=== PATIENT | female | born 1995 | race Caucasian/White ===

== ENCOUNTER 2021-08-27 07:09 | Inpatient (IN) | payer SELFPAY ==
[2021-08-27] VITALS (40 sets, daily range): BP systolic 113–155; BP diastolic 58–90; PULSE 75–123; RESP 16; TEMP 36.2–37.4; O2SAT 91–100; BMI 33.2
--- NOTE | 2021-08-27 08:48 | PCM.HP.OB ---
HPI - General General Date of Admission: 08/27/21 HPI Narrative ASHLEY VALLE, is a 25 F @ 34w1d who presents with clear PPROM. she had been receiving care by environmental maintenance worker Melani Rosario in [place] with no complications to the and awoke this morning with clear LOF. she had a minor fall yesterday but has no abdominal pain or bleeding, nofevers or recent infections. she feels good fm and no regular ctx. she has had two previous SVDs, preeclampsia with her first . Maternal Data Information EDY Calculator Estimated Delivery Date Method Current WG Current Estimate 10/07/21 Manual 34w 1d PFSH PFSH Home Medications [id number] [] 1 tab PO DAILY 08/27/21 [History Last Taken 08/26/21] Allergy/AdvReac Type Severity Reaction Status Date / Time No Known Allergies Allergy Verified 12/01/14 10:25 Social History Smoking Status: Never smoker NST FHR Rate Baby A Baseline: 140 Variability:: Moderate Accelerations:: 15 x 15 Decelerations:: None NST Reactive:: Yes FHR Category:: Category I ROS Constitutional Constitutional: Reports systems reviewed and no addt'l complaints, except as documented ENT HEENT: Reports systems reviewed and no addt'l complaints, except as documented Cardiovascular Cardiovascular: Reports systems reviewed and no addt'l complaints, except as documented Respiratory/Chest Respiratory/Chest: Reports systems reviewed and no addt'l complaints, except as documented Gastrointestinal Gastrointestinal: Reports systems reviewed and no addt'l complaints, except as documented and nausea; Denies abdominal pain Genitourinary Genitourinary: Reports systems reviewed and no addt'l complaints, except as documented, contractions Details: present and frequency (regular ) and movement Details: present Musculoskeletal Musculoskeletal: Reports systems reviewed and no addt'l complaints, except as documented Integumentary Integumentary: Reports as per HPI Neurologic Neurologic: Reports systems reviewed and no addt'l complaints, except as documented Endocrine Endocrinology: Reports systems reviewed and no addt'l complaints, except as documented Vital Signs Vital Signs Vital Signs: 08/27/21 07:48 08/27/21 07:49 08/27/21 07:52 Temperature 99.2 F H Temperature Source Temporal Pulse Rate 101 H 101 H 100 Blood Pressure 128/79 H 128/79 H BP Systolic 128 128 BP Diastolic 79 79 Pulse Ox 97 97 Weight Weight: 187 lb 6.287 oz Body Mass Index (BMI) 33.2 Physical Exam Const alert, oriented x3 and healthy appearing Constitutional Narrative: uncomfortable with contractions HEENT normocephalic and moist oral mucous membranes Head and Scalp: atraumatic Neck full ROM, no lymphadenopathy, supple and thyroid normal General: trachea midline Thyroid: thyroid normal Lymph Lymphatic: no lymphadenopathy noted Chest inspection of chest normal Resp normal respiratory effort Cardio regular rate GI normal to inspection, nondistended, normoactive bowel sounds, soft to palpation and non-tender Inspection: gravid external exam normal Bimanual Exam - Vag & Uterus: uterus non-tender Manual OB Exam: estimated gestational size appropriate, presentation cephalic, dilated 1, effaced and station Extremity normal to inspection General Extremity: Negative for edema Skin no rashes or lesions noted Neuro deep tendon reflexes 2+ bilaterally Motor Exam: strength 5/5 throughout and clonus absent Psych mental status grossly normal Labs Labs Labs: No Data to Display Assessment & Plan (1) premature rupture of membranes (PPROM) with unknown onset of labor: COMMENT: ampicillin prophylaxis. monitor for signs of triple I. celestone for prematurity (2) Encounter for induction of labor: COMMENT: plan pitocin IOL, Epi PRN
[2021-08-27] MEDS: Lactated Ringers 1,000 ML 50 ML IV (09:00)
[2021-08-27] MEDS: Betamethasone/Betamethasone 30 MG/5 ML Vial 12 MG IM (09:14)
[2021-08-27] MEDS: Oxytocin 30 units/NS 500 ml 30 UNITS/500 ML IV.SOLN IV (09:41)
[2021-08-27 09:47] LABS: Absolute Lymphocyte Count 1.35 X10^3/uL (0.83-4.51); Absolute Neutrophil Count 5.1 X10^3/uL (2.0-7.7); Basophil# 0.02 X10^3/uL; Basophil% 0.3 % (0-1); Eosinophil# 0.04 X10^3/uL; Eosinophils% 0.6 % (0-5); Hematocrit 37.3 % (37-47); Hemoglobin 12.9 g/dL (12.0-15.0); Lymphocyte # 1.35 X10^3/ul (0.83-4.51); Lymphocyte % 19.2 % (19-41); Mean Corp Hgb Conc 34.6 g/dL (32-36); Mean Corpuscular Hgb 30.1 pg (27.0-32.0); Mean Corpuscular Volume 87.1 fL (81-99); Mean Platelet Vol. 8.4 fl (6.2-12.0); Monocyte# 0.54 X10^3/uL; Monocyte% 7.7 % (0-10); NRBC Flagged by Analyzer 0 % (0-5); Neutrophil # 5.05 X10^3/uL (2.7-7.7); Neutrophil % 71.9 % (47-70); Platelet Count 235 K/mm3 (150-450); RBC Distribution Width CV 13.6 % (11.6-14.6); RBC Distribution Width SD 42.9 fl (35.1-43.9); Red Blood Count 4.28 M/mm3 (4.2-5.4)
[2021-08-27] MEDS: Lactated Ringers 500 ML 999 ML IV (12:40)
[2021-08-27] MEDS: fentaNYL-bupivacaine (epidural) 100 ML BAG EPIDURAL (13:24)
[2021-08-27 13:31] LABS: HIV - WCH Non-Reactive (Nonreactive); Hepatitis C Antibody Non-Reactive (Nonreactive)
--- NOTE | 2021-08-27 14:21 | EX.PCM.OBRPT ---
Assessment & Plan (1) premature rupture of membranes (PPROM) with unknown onset of labor: COMMENT: ampicillin prophylaxis. monitor for signs of triple I. celestone for prematurity (2) Encounter for induction of labor: COMMENT: plan pitocin IOL, Epi PRN (3) Vaginal delivery: COMMENT: PPROM 34 SM boy [facility] Maternal Data Information EDY Calculator Estimated Delivery Date Method Current WG Current Estimate 10/07/21 Manual 34w 1d Vaginal Delivery Operative Information Date of Procedure: 08/27/21 Pre-Operative Diagnosis: IAL Post-Operative Diagnosis: same Surgery / Procedure Performed: Spontaneous Vaginal Delivery Type of Anesthesia: Epidural Special Medications: none Estimated Blood Loss: 100 Fluids Replaced: crystalloid Findings Description of Procedure: Patient began pushing and delivered the head in the YANELIS presentation. The head was delivered atraumatically . The anterior and posterior shoulders delivered without complication followed by the rest of the and the was placed on the maternal abdomen. Delayed cord clamping was employed for approximately 60 seconds. Cord was clamped and cut and gentle traction was applied to the cord and the placenta delivered spontaneously immediately following it was noted to be intact with three-vessel cord. The perineum and vagina were inspected and noted to have no laceration. EBL was 100 cc. Patient and infant tolerated delivery well. Presentation: YANELIS Amniotic Membrane Rupture Type: Artificial Amniotic Fluid Description: Clear Placental Delivery Description: Spontaneous Placenta Disposition: [facility] Cord Vessel Description: 3 Vessels Cord Entanglement: None Delayed Cord Clamping: Yes Post Vaginal Delivery Medications Given After Delivery: IV Pitocin Episiotomy Description: None Laceration: None Complication Complications: None Procedures Urinary/Genital [id number]: 95320 Vaginal Delivery Only
--- NOTE | 2021-08-27 14:24 | PCM.DC ---
Discharge Instructions Diet Discharge Diet: No restrictions Activity Discharge Activity: Return to Normal Activity, May Not Drive (while taking narcotic pain medications.) and May Shower May resume sexual activity in: 4-6 weeks Dressing / Incision Call your doctor if your incision/area has: Continuous Slow Oozing, Sudden Increased Bleeding, Increased Pain/ Swelling, Increased Redness and Foul Smelling Discharge Follow Up Care Please Follow Up With: Izabella Noguera MD When: Call [phone] to make an appointment with your doctor in 6 weeks. If you had elevated blood pressure or 4th degree laceration, you will need to be seen in 2 weeks. Test Results: Test results from this visit will be discussed in further detail at your follow-up appointment, if applicable. Discharge Plan Admission Admit Date/Time: 08/27/21 07:09 Attending Provider: Izabella Noguera Discharge Orders/Prescriptions Prescriptions: No Action 1 mg Tablet 1 tab PO DAILY RF: 0 Disposition Disposition (needs filled in before D/C Order can be placed): Home, Self Care
[2021-08-27 17:05] LABS: Group B Strep DNA By PCR POSITIVE (Negative); Probe Check PASS
--- NOTE | 2021-08-27 19:43 | NURSING ---
GBS was collected on admission. Lab results remained pending until after baby born. kvng arana rn
[2021-08-27] MEDS: Acetaminophen 500 MG Tablet 1000 MG PO (22:16)
[2021-08-28 01:36] VITALS: BP 125/71; PULSE 76; RESP 16; TEMP 36.6
[2021-08-28 04:19] VITALS: BP 130/78; PULSE 80; RESP 16; TEMP 36.6
[2021-08-28] MEDS: Naproxen 500 MG Tablet PO ×2 (04:21→12:31)
--- NOTE | 2021-08-28 07:09 | PN.OBGYN_ITS ---
Subjective Subjective Patient doing well without complaints. Tolerating PO. Ambulating and voiding without difficulty. feeding well. Denies chest pain, shortness of breath, calf pain/swelling, fevers, chills, lightheadedness. Objective Data Objective Data Vital Signs: Vital Signs Temp Pulse Resp BP Pulse Ox 97.9 F 80 16 130/78 H 99 08/28/21 04:19 08/28/21 04:19 08/28/21 04:19 08/28/21 04:19 08/27/21 16:40 Oxygen Delivery Method Room Air Weight: 187 lb 6.287 oz Body Mass Index (BMI) 33.2 Intake & Output: Intake and Output for Last 24 Hours 08/26/21 08/27/21 08/28/21 23:59 23:59 23:59 Intake Total 1029.36 / 1029.36 Output Total 950 / 950 Balance 79.36 / 79.36 Lab / Micro Data Result Diagrams: 08/27/21 09:05 Labs: Laboratory Results - last 24 hr 08/27/21 09:05: WBC 7.0, RBC 4.28, Hgb 12.9, Hct 37.3, MCV 87.1, MCH 30.1, MCHC 34.6, RDW Std Deviation 42.9, RDW Coeff of Eliezer 13.6, Plt Count 235, MPV 8.4, Immature Gran % (Auto) 0.300, Neut % (Auto) 71.9 H, Lymph % (Auto) 19.2, Garrett % (Auto) 7.7, Eos % (Auto) 0.6, Baso % (Auto) 0.3, Absolute Neuts (auto) 5.1, Absolute Lymphs (auto) 1.35, Nucleated RBC % 0 08/27/21 09:05: Blood Type A POSITIVE, Antibody Screen NEGATIVE 08/27/21 09:05: Group B Strep DNA POSITIVE H, Specimen Comment SINGLE SOURCE 08/27/21 09:05: Hepatitis C Antibody Non-Reactive, HIV 1&2 Antibody Non-Reactive Micro: Microbiology 08/27/21 09:05 Nasal Secretion SARS-CoV-2 Antigen (Rapid) - Final ROS Constitutional Constitutional: Reports systems reviewed and no addt'l complaints, except as documented Cardiovascular Cardiovascular: Reports systems reviewed and no addt'l complaints, except as documented Respiratory/Chest Respiratory/Chest: Reports systems reviewed and no addt'l complaints, except as documented Gastrointestinal Gastrointestinal: Reports systems reviewed and no addt'l complaints, except as documented Physical Exam Const alert, oriented x3 and no apparent distress HEENT Head and Scalp: atraumatic Resp normal respiratory effort GI soft to palpation and non-tender Bimanual Exam - Vag & Uterus: uterus non-tender Uterus Palpation: uterus fundus firm (below Umbilicus) Assessment & Plan (1) Vaginal delivery: COMMENT: PPROM 34 boy [facility] (2) premature rupture of membranes (PPROM) with unknown onset of labor: COMMENT: ampicillin prophylaxis. monitor for signs of triple I. celestone for prematurity (3) Encounter for induction of labor: COMMENT: plan pitocin IOL, Epi PRN PLAN: s/p PPD # 1 1. routine post delivery care 2. breast feeding- support given 3. rh positive 4. rubella immune
[2021-08-28 08:00] VITALS: BP 123/77; PULSE 92; RESP 16; TEMP 36.9
[2021-08-28 14:00] VITALS: BP 125/66; PULSE 92; RESP 16; TEMP 36.7
== END 2021-08-28 17:30 | disposition home or self-care (01) | DRG 807 ==
LOC: WPOUT 07:23 → WP 07:23 → WPOUT 07:55 → WP 07:55
PROVIDERS: Admitting Provider Obstetrics & Gynecology; Referring Provider Obstetrics & Gynecology; Visit Provider Obstetrics & Gynecology
DX: O42.913 Preterm premature rupture of membranes, unspecified as to length of time between rupture and onset of labor, third trimester (principal); Z37.0 Single live birth; Z3A.34 34 weeks gestation of pregnancy; Z87.59 Personal history of other complications of pregnancy, childbirth and the puerperium
CPT/HCPCS: 59025; 59050; 85025; 86703; 86803; 86850; 86900; 86901; 87426; 87653; 99218; J7120; G0378; J0290; J0702

== ENCOUNTER 2021-10-17 08:04 | Outpatient (CLI) | payer SELFPAY ==
[2021-10-19 16:43] LABS: HPV Reflexed? NOT INDICATED
== END 2021-10-17 23:59 | disposition home or self-care (01) ==
LOC: LABSPEC 08:05
PROVIDERS: Visit Provider Obstetrics & Gynecology
DX: Z12.4 Encounter for screening for malignant neoplasm of cervix (principal)
CPT/HCPCS: 88175; G0145

== ENCOUNTER → 2023-05-23 | Outpatient (CLI) | payer SELFPAY ==
[2023-05-23 14:25] LABS: hCG Titer Quant., Serum 42506 mIU/mL (1-3)
[2023-05-28 09:07] LABS: Chlamydia By Nucleic Acid AMP Negative (Negative); Gonococcus By Nucleic Acid AMP Negative (Negative)
== END | disposition home or self-care (01) ==
PROVIDERS: Registered Nurse; Referring Provider Obstetrics & Gynecology; Visit Provider Obstetrics & Gynecology
DX: O20.0 Threatened abortion (principal); Z3A.08 8 weeks gestation of pregnancy
CPT/HCPCS: 36415; 84702; 87086; 87491; 87591

== ENCOUNTER → 2023-05-29 | Outpatient (CLI) | payer SELFPAY ==
--- NOTE | 2023-05-29 12:23 | US_ITS ---
STUDY: FIRST TRIMESTER OBSTETRICAL ULTRASOUND REASON FOR EXAM: Female, 27 years old threatened LMP: March 22, 2023. TECHNIQUE: Transabdominal and Transvaginal TECHNICAL QUALITY: Adequate. PRIOR ULTRASOUND: None. FINDINGS: There is visualization of a single gestational sac in a normal intrauterine position. The mean sac diameter (MSD) measures 2.42 cm, indicating an estimated gestational age (EGA) of 7 weeks, 3 days. The gestational sac shape is irregular in appearance There is no demonstrated yolk sac. The placenta is non-visualized. Questionable intrauterine embryo measuring 4.4 mm corresponding to 6 weeks and 2 days. No cardiac activity is seen at this time. The estimated gestation age (EGA) by LMP is 9 weeks, 5 days. The estimated date of delivery (EDY) by LMP is December 27, 2023. The estimated gestation age (EGA) by US is 6 weeks, 6 days. The estimated date of delivery (EDY) by US is January 16, 2024. The uterus measures 10.2 cm x 8 cm x 6.1 cm. There is no demonstrated uterine fibroid. The cervix is closed. The right ovary measures 2.6 cm x 2.9 cm x 1.3 cm. There is no right ovarian cyst. There is no visualized right adnexal mass or complex lesion. The left ovary measures 2.6 cm x 2.9 cm x 1.8 cm. There is no left ovarian cyst. There is no visualized left adnexal mass or complex lesion. There is no fluid in the cul de sac. US/Transvaginal w/Preg US IMPRESSION: Intrauterine gestation with mean gestational age of 6 weeks and 6 days. No live gestation is seen at this time. Follow-up recommended. Electronically Signed: Kwaku Martin MD at 14:02 [facility] [[email or web address]] ,
== END | disposition home or self-care (01) ==
PROVIDERS: Referring Provider Obstetrics & Gynecology; Visit Provider Obstetrics & Gynecology
DX: O20.0 Threatened abortion (principal); Z3A.00 Weeks of gestation of pregnancy not specified
CPT/HCPCS: 76817

== ENCOUNTER 2023-06-01 10:54 | Day surgery (SDC) | payer SELFPAY ==
[2023-06-01] VITALS (8 sets, daily range): BP systolic 112–128; BP diastolic 67–89; PULSE 72–80; RESP 16; TEMP 36.4–36.8; O2SAT 98–100; BMI 30.6
[2023-06-01] MEDS: Lactated Ringers 1,000 ML 15 ML IV (11:37)
[2023-06-01 11:38] LABS: Hematocrit 38.7 % (37-47); Hemoglobin 13.5 g/dL (12.0-15.0); Mean Corp Hgb Conc 34.9 g/dL (32-36); Mean Corpuscular Hgb 30.1 pg (27.0-32.0); Mean Corpuscular Volume 86.2 fL (81-99); Mean Platelet Vol. 8.4 fl (6.2-12.0); Platelet Count 276 K/mm3 (150-450); RBC Distribution Width CV 12.8 % (11.6-14.6); RBC Distribution Width SD 40.4 fl (35.1-43.9); Red Blood Count 4.49 M/mm3 (4.2-5.4); White Blood Count 5.9 K/mm3 (4.4-11.0)
[2023-06-01] MEDS: Doxycycline 100 MG CAPSULE PO (11:45)
--- NOTE | 2023-06-01 12:09 | HP.PCM_ITS ---
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 Is patient in pain?: No Allergies No Known Allergies Allergy (Verified 05/31/23 10:53) Medications [id number]-eoa-Cf-FA 1 mg tablet 1 tab PO DAILY 08/27/21 [History Confirmed 05/31/23] Last Menstrual Period: 03/22/23 Zika: Zika virus screening: Negative : No PFSH PFSH Medical History Encounter for induction of labor premature rupture of membranes (PPROM) with unknown onset of labor Seasonal allergies Vaginal delivery Surgical History History of surgery Family History Father Polydactyly of both feet Polydactyly of both hands Social History adopted: No household members: spouse and children number of children: 3 current occupational status: unemployed current occupation: HOMEMAKER current occupational exposures/hazards: No pets and animals: No history of recent travel: Yes (-) out of state: Yes out of country: No sexually active: Yes Smoking Status: Never smoker alcohol intake: current alcohol intake frequency: holidays/special occasions only details: NOT WHILE substance use type: does not use well-balanced diet: daily or most days caffeine: No eating out: 1-3 times/week during the past year weight has: increased > 10 lbs what type of physical activity do you participate in: walking frequency: 5-6 times per week duration: 30-45 minutes/day meri/synagogue: Religious seatbelt use: always do you feel safe at home: Yes additional social history: Gracie [employer]a nguyen is her family business History 4 Elective abortions 0 Hx Para 3 Spontaneous abortions 1 Hx # Term Pregnancies 3 Ectopic pregnancies 0 Hx # Pregnancies 1 Multiple births 0 # of living children 3 Past Pregnancies Del. Date Name GA/Weeks Outcome Route Bth Weight Infant Gen Labor Lgth Anesthesia Del Locatn Provider FOB Unknown Kimberly live - full term Unknown Taylor live - full term 08/27/21 [facility] [place] 34 live - [facility] [place] Delivery Date: 08/27/21 Last Updated by: Valery Romero PPROM pt saw Melani Rosario at [place] a CNM there. Delivered at [facility] due to GA, baby transferred to [facility]. Family owns Marcela nguyen HPI possible miscarriage/US dating off Details: ASHLEY ROMERO is a 27 year old who presents for follow up early . US shows 4.5mm CRL with no FHT or color doppler seen. no viable IUP. GS measuring 29 mm. confirmed missed . she denies any bleeding or crmaping, no fevers. OB Visit EDY Calculator Estimated Delivery Date Method Current WG Current Estimate 12/27/23 LMP (Certain) 10w 0d Initial Weight: 177 lb Date -?-?-?-?-?-?-?-?-?-?-?-?- EGA Weight BP Urine Prot -?-?-?-?-?-?-?-?-?-?-?-?- Glucose FHR FuHt Pres Dilation -?-?-?-?-?-?-?-?-?-?-?-?- Effaced St Visit Note 05/23/23-?-?-?-?-?-?-?-?-?-?-?-?- 8w 6d 177 lb 4 oz(+4 oz) 131/85 -?-?--?-?-?-?-?-?-?-?-?-?- -?-?-?-?-?-?-?-?-?-?-?-?- LC- GS measuring 7 weeks, no FHT. threatened AB vs missed AB. will obtain hcgx2. ACOG First Trimester First Trimester: ROS Const Reports system reviewed and no additional complaints, except as documented, Reports fatigue and Denies fever(s) Eyes Reports system reviewed and no additional complaints, except as documented ENT Reports system reviewed and no additional complaints, except as documented Card Denies chest pain and Denies dyspnea Resp Reports system reviewed and no additional complaints, except as documented, Denies cough and Denies dyspnea GI Denies abdominal pain and Reports nausea Reports system reviewed and no additional complaints, except as documented Musc Reports system reviewed and no additional complaints, except as documented Skin/Breast Reports system reviewed and no additional complaints, except as documented Neuro Yes system reviewed and no additional complaints, except as documented Psych Reports system reviewed and no additional complaints, except as documented Endo Reports system reviewed and no additional complaints, except as documented and Reports fatigue Exam Const General: healthy appearing, comfortable and no acute distress Orientation: alert HENTX Head: normal to inspection, normocephalic and atraumatic Ears: hearing grossly normal bilaterally and external ears normal Nose: external nose normal and nares normal Mouth: oral mucosae normal Teeth and gingiva: dentition normal Eyes General: appearance normal, both eyes and all related structures Neck Neck: normal visual inspection, no lymphadenopathy and supple Thyroid: thyroid normal Resp Effort & Inspection: normal respiratory effort GI Inspection: normal to inspection Palpation: soft and no hepatosplenomegaly General: bladder normal to palpation External Female Exam: normal external appearance and normal appearance of the urethra Urethra: normal appearance of the urethra Speculum Exam - Vagina: normal appearance of the vagina and normal vaginal discharge Speculum Exam - Cervix: normal appearance of the cervix Bimanual Exam- Vagina & Uterus: normal bimanual exam, bladder normal to palpation, non-tender and other Bimanual Exam- Adnexa, other: non-tender Skin General: no rashes or lesions noted Neuro Motor: muscle tone normal throughout and no movement abnormalities noted Extrem General: normal to inspection and full ROM Supplemental Info ACOG book given and patient encouraged to read about nutrition, exercise, weight gain, and food avoidance in . Coding Level of Care Code Off vis,est,level 4 Diagnoses Missed O02.1 Assessment and Plan Assessment and Plan (1) Missed : Status: Acute Comment: Taylor Tanner [facility] [place] Maximiliano Plan reviewed medical vs surgical options, plan for suction d and c. After discussing the patient's diagnosis and treatment plan options, patient wishes to proceed with surgical management. I have discussed with the patient the risks, benefits, and alternatives of the procedure which include but are not limited to risks of anesthesia, bleeding, infection, possible damage to bowel, bladder, or surrounding vasculature which could lead to additional surgery to evaluate any complications. Patient agrees to procedure and wishes to proceed. ACOG/uptodate references given for additional information regarding procedure. UPDATE- I have seen the patient and performed any clinically relevant updates to the history and physical exam. Izabella Noguera MD
--- NOTE | 2023-06-01 12:17 | PCM.OPRPT ---
Report of Operation Date of Procedure: 06/05/23 Pre-Operative Diagnosis: see problem list Post-Operative Diagnosis: same Surgery/Procedure Performed:: Suction dilation and curettage Description of Surgical Findings:: no FHT present, Nonviable 10 weeks Surgeon: Izabella Noguera mechanical engineering coop: None Type of Anesthesia: Local MAC Special Medications: none Specimen's removed: POC Drains: none Estimated Blood Loss (mL): 50 Fluids Replaced: crystalloid Description of Procedure: Patient was taken to the operating room and placed under MAC local anesthesia. She was prepped and draped in the normal sterile fashion the dorsal lithotomy position. Bladder was drained of clear urine and anterior lip of the cervix was grasped and the uterus sounded to 10 cm. Cervix was progressively dilated to allow passage of a 10mm suction curette. Progressive passes were made removing the retained products of conception without complication. Sharp curettage confirmed complete removal of the retained products. All instruments were removed from the vagina and excellent hemostasis was noted and the patient was taken to recovery in stable condition. Grafts/Implants Used: none Complications none Admit VTE Documentation VTE Present on Admission: No VTE Mechan Device Prophylaxis: SCD's Procedures Urinary/Genital 52xxx-59xxx: 75150 Surg Trtmt missed Ab, 1TM
--- NOTE | 2023-06-01 13:10 | POC_PTH ---
PATIENT: ASHLEY VALLE LOC: [facility] U#:[id number] AGE/SX: 27/F ROOM: RE06/01/[address]: Dr. Izabella Noguera MD : 1995 BED: DIS: 06/01/2023 SPEC #: [id number] RECD: 06/04/23 07:58 STATUS: ANGELA BRITO #: [id number] BOB: [birth year] 13:[address]: Izabella Noguera DEPT: SURGICAL PATHOLOGY RECD BY: Kim Pace ENTERED: 06/04/23 07:58 SP TYPE: PROD CONC OTHR DR: No Primary Care Phys Tissues: Product of conception, NOS Procedures: Surgery Specimen Level IV HEADER OPERATION: Suction D & C PRE-OP DIAGNOSIS: Missed TISSUE SUBMITTED: Products of conception MICROSCOPIC DIAGNOSIS Endometrium, curettage: Chorionic villi with focal hydropic change, decidualized stroma and trophoblastic cells consistent with products of conception. AM:roma 06/05/2023 COMMENT Microarray test performed at [facility] was not of sufficient quality and quantity to pass array standards; therefore, was not performed. MICROSCOPIC DESCRIPTION Slides are reviewed. GROSS DESCRIPTION Received in fixative is one container labeled with the patient's name and designated products of conception. The specimen consists of multiple irregular fragments of light to dark rapp soft tissue that in aggregate measure 7.0 x 6.0 x 1.0 cm. parts are not grossly recognized. Automatic Spinning Lathe Operator portions are submitted in one cassette. / AM:roma 06/04/2023 TC:5 CPT: 11450
--- NOTE | 2023-06-01 14:11 | DCINST_ITS ---
Discharge Instructions Diet Discharge Diet: No restrictions Activity Discharge Activity: Return to Normal Activity, May Shower and May Take a Tub Bath (after 1 week) May resume sexual activity in: 1-2 weeks Weight Bearing Status: Weight bearing as tolerated Lifting Restrictions: none Dressing / Incision Call your doctor if you observe: Fever of 101 or Higher, Using more than 1 pad per hour, Shortness of breath and Uncontrolled pain Follow Up Care Please Follow Up With: Izabella Noguera MD When: Call [phone] to schedule appointment. Test Results: Test results from this visit will be discussed in further detail at your follow- up appointment, if applicable. Discharge Plan Admission Attending Provider: Izabella Noguera Primary Care Provider: Care Physician,Danitza Primary Discharge Orders/Prescriptions Prescriptions: No Action 1 mg Tablet 1 tab PO DAILY Referrals / Follow Up: Care Physician,No Primary [Primary Care Provider] - Disposition Disposition (needs filled in before D/C Order can be placed): Home, Self Care
[2023-06-01] MEDS: Oxycodone/Apap 5/325 Tablet PO (15:04)
== END 2023-06-01 15:34 | disposition home or self-care (01) ==
LOC: SDC 10:55 → AC 10:58
PROVIDERS: Referring Provider Obstetrics & Gynecology; Visit Provider Obstetrics & Gynecology
PROC: (CPT 59820; principal; 2023-06-01 12:55)
DX: O02.1 Missed abortion (principal)
CPT/HCPCS: 59820; 01965; 85027; 86850; 86900; 86901; 88305; J7120; J2405

== ENCOUNTER → 2023-06-18 | Outpatient (CLI) | payer SELFPAY ==
[2023-06-18 13:20] LABS: hCG Titer Quant., Serum 19 mIU/mL (1-3)
== END | disposition home or self-care (01) ==
LOC: LAB 12:11
PROVIDERS: Registered Nurse; Referring Provider Obstetrics & Gynecology; Visit Provider Obstetrics & Gynecology
DX: O20.0 Threatened abortion (principal); Z3A.00 Weeks of gestation of pregnancy not specified
CPT/HCPCS: 36415; 84702

== ENCOUNTER → 2023-06-26 | Outpatient (CLI) | payer SELFPAY ==
[2023-06-26 11:17] LABS: hCG Titer Quant., Serum 6 mIU/mL (1-3)
== END | disposition home or self-care (01) ==
LOC: LAB 10:02
PROVIDERS: Referring Provider Obstetrics & Gynecology; Visit Provider Obstetrics & Gynecology
DX: O02.1 Missed abortion (principal)
CPT/HCPCS: 36415; 84702

== ENCOUNTER → 2023-08-30 | Outpatient (CLI) | payer SELFPAY ==
[2023-08-30 12:20] LABS: Absolute Lymphocyte Count 1.97 X10^3/uL (0.83-4.51); Absolute Neutrophil Count 4.7 X10^3/uL (2.0-7.7); Basophil# 0.05 X10^3/uL; Basophil% 0.7 % (0-1); Eosinophil# 0.09 X10^3/uL; Eosinophils% 1.2 % (0-5); Hematocrit 40.8 % (37-47); Hemoglobin 13.8 g/dL (12.0-15.0); Lymphocyte # 1.97 X10^3/ul (0.83-4.51); Lymphocyte % 26.1 % (19-41); Mean Corp Hgb Conc 33.8 g/dL (32-36); Mean Corpuscular Hgb 29.6 pg (27.0-32.0); Mean Corpuscular Volume 87.4 fL (81-99); Mean Platelet Vol. 8.3 fl (6.2-12.0); Monocyte# 0.76 X10^3/uL; Monocyte% 10.1 % (0-10); NRBC Flagged by Analyzer 0 % (0-5); Neutrophil # 4.65 X10^3/uL (2.7-7.7); Neutrophil % 61.4 % (47-70); Platelet Count 275 K/mm3 (150-450); RBC Distribution Width CV 12.9 % (11.6-14.6); RBC Distribution Width SD 40.3 fl (35.1-43.9); Red Blood Count 4.67 M/mm3 (4.2-5.4); White Blood Count 7.6 K/mm3 (4.4-11.0)
[2023-08-30 12:51] LABS: Hemoglobin A1c 5.1 % (3.8-5.6)
[2023-08-30 13:55] LABS: HIV - WCH Non-Reactive (Nonreactive); Hepatitis B Surface Antigen Non-Reactive (Nonreactive); Hepatitis C Antibody Non-Reactive (Nonreactive); Rubella IgG Reactive (Nonreactive); Syphilis Antibodies Non-reactive
--- OUTSIDE RECORDS SUMMARY | 2023-08-30 17:51 | XMS RPT_ITS | CCD ---
Author Name Unknown Address [address] [place] [address] Organization [facility] Care Team Providers Care Social Insurance Administrator Name Role Phone ELA HAMMONDS CNP Unavailable Unavailable ELA HAMMONDS CNP Unavailable Unavailable ELA HAMMONDS CNP Unavailable Unavailable JAROCHO MCCORD III Unavailable Unavailable PROVIDER, UNKNOWN Unavailable Unavailable Problems Problem Classification Problem Date Documented Da te Episodic/Chronic Menstrual disorders (1 source) Amenorrhea, unspecified; Translations: [Amenorrhea, unspecified] Onset: 04-03-2018 Chronic Results Test Name Value Interpretation Reference Range Facil ity Encounters Encounter Date Encounter Type Care Provider Facility Start: 04-03-2018 Patient encounter ELA HAMMONDS [facility] Payers Date Payer Category Payer Policy ID Unknown [id number] Clinical Note 02-01-2021 Note Date & Type Note Facility 02-01-2021 Note Patient Outreach (JEANNIE TNAV) ASHLEY VALLE ([id number]) 1995 F Date Time Provider Department 02/01/21 MILES GRANADOS (PSS) ANNETTEV During your visit today, we recorded the following information about you: Miles Granados Pss 02/01/2021 9:49 AM Signed POPULATION HEALTH NAVIGATION OUTREACH Action/ Cervical Cancer Screening (pt no longer uses [facility] for any of her healthcare, removed PCP) Contact made with patient or family member? YES Pt identified by name and : YES Outreach Outcome/Action Spoke to patient or caregiver: Patient declined Reason for Outreach Care Gap or Scheduling/Wellness visits Payer: No coverage found. Care Gap Reviewed:: Annual Wellness visit Reminder: Reminder note to check Health Maintenance for items below Health Maintenance items due: HPV VACCINE(1 - 2-dose series) Never done DEPRESSION SCREENING Never done COVID-19 VACCINE(1) Never done HEPATITIS C SCREENING Never done HIV SCREENING Never done PAP TESTING due on 10/19/2019 Advanced Directives Completed: Have you ever planned for future healthcare decisions with a power of cardiac exercise physiologist, living will, or advance directives? Referrals: Message Sent to Practice: NO Navigation Signature: Miles Rowe February 01, 2021 9:49 AM Allergies As of Date: 02/01/2021 Noted Allergy Reaction SEASONAL ALLERGIES 03/03/2015 14 - Other: See Comments Comments: Runny nose, itchy eyes etc Date Reviewed: 10/18/2016 Reviewed by: Bairon Delarosa Interpreter Deaf - Fully Assessed Reason for Visit: Population Health Navigation Outreach [[id number]] Cmt: Women's Health Annual Exam, scheduling Prescriptions as of 02/01/2021 - Norethindrn A-E Estradiol-Iron 1 mg-20 mcg (24)/75 mg (4) tab Take 1 tablet by mouth once daily. 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 Author Type: ? Type: Progress Notes Filed: 02/01/2021 9:49 AM Note Text: POPULATION HEALTH NAVIGATION OUTREACH Action/FYI Cervical Cancer Screening (pt no longer uses [facility] for any of her healthcare, removed PCP) Contact made with patient or family member? YES Pt identified by name and : YES Outreach Outcome/Action Spoke to patient or caregiver: Patient declined Reason for Outreach Care Gap or Scheduling/Wellness visits Payer: No coverage found. Care Gap Reviewed:: Annual Wellness visit Reminder: Reminder note to check Health Maintenance for items below Health Maintenance items due: HPV VACCINE(1 - 2-dose series) Never done DEPRESSION SCREENING Never done COVID-19 VACCINE(1) Never done HEPATITIS C SCREENING Never done HIV SCREENING Never done PAP TESTING due on 10/19/2019 Advanced Directives Completed: Have you ever planned for future healthcare decisions with a power of cardiac exercise physiologist, living will, or advance directives? Referrals: Message Sent to Practice: NO Navigation Signature: Miles Rowe February 01, 2021 9:49 AM [facility] Summary Purpose Family History No Family History Records FoundNo Family History Records FoundNo Family History Records Found Advance Directives No Advanced Directives Records FoundNo Advanced Directives Records FoundNo Advanced Directives Records Found Additional Source Comments INFORMATION SOURCE (unrecogn ized section and content) DATE CREATED AUTHOR AUTHOR'S ORGANIZ ATION 02/02/2021 [facility] DATE CREATED AUTHOR AUTHOR'S ORGANIZ ATION 07/14/2021 [facility] FOR RECORDS PERTAINING TO PATIENTS WHO ARE OR HAVE BEEN ENROLLED IN A CHEMICAL DEPENDENCY/SUBSTANCEABUSE PROGRAM, SOME INFORMATION MAY BE OMITTED. This clinical summary was aggregated from multiple sources. Caution should be exercised in using it in the provision of clinical care. This summary normalizes information from multiple sources, and as a consequence, information in this document may materially change the coding, format and clinical context of patient data. In addition, data may be omitted in some cases. CLINICAL DECISIONS SHOULD BE BASED ON THE PRIMARY CLINICAL RECORDS. [employer] provides no warranty or guarantee of the accuracy or completeness of information in this document.
[2023-09-04 05:07] LABS: Chlamydia By Nucleic Acid AMP Negative (Negative); Gonococcus By Nucleic Acid AMP Negative (Negative)
== END | disposition home or self-care (01) ==
PROVIDERS: Referring Provider Advanced Practice Midwife; Visit Provider Advanced Practice Midwife
DX: Z34.90 Encounter for supervision of normal pregnancy, unspecified, unspecified trimester (principal)
CPT/HCPCS: 36415; 83036; 85025; 86703; 86762; 86780; 86803; 86850; 86900; 86901; 87086; 87340; 87491; 87591

== ENCOUNTER → 2023-11-06 | Outpatient (CLI) | payer SELFPAY ==
--- NOTE | 2023-11-06 15:30 | US_ITS ---
STUDY: SECOND AND THIRD TRIMESTER OBSTETRICAL ULTRASOUND - LIMITED REASON FOR EXAM: Female, 28 years old Cervical length LMP: July 09, 2023 2 PRIOR ULTRASOUND: None. TECHNIQUE: Transabdominal and Transvaginal TECHNICAL QUALITY: Adequate. FINDINGS: There is a single intrauterine fetus. The fetus is in a cephalic presentation. There is demonstrated cardiac activity with a heart rate of 143 bpm. There is a normal amniotic fluid volume. The largest amniotic fluid pocket measures 2.8 cm. The amniotic fluid index (KALIA) is within normal limits. The placenta is anterior in location and is not low lying. There are Grade 0 placental changes. The cervix measures 4.8 cm in length. IMPRESSION: Cervical length measures 4.8 cm. Electronically Signed: Kwaku Martin MD at 8:55 EDT , STUDY: FIRST TRIMESTER OBSTETRICAL ULTRASOUND REASON FOR EXAM: Female, 28 years old Cervical length LMP: July 09, 2023. TECHNIQUE: Transvaginal TECHNICAL QUALITY: Adequate. PRIOR ULTRASOUND: None. FINDINGS: The cervical length measures 4.8 cm. US/OB Limited (No Biometrics) IMPRESSION: The cervical length measures 4.8 cm. Electronically Signed: Kwaku Martin MD at 8:56 EDT ,
== END | disposition home or self-care (01) ==
LOC: US 15:29
PROVIDERS: Referring Provider Nurse Practitioner Women's Health; Visit Provider Nurse Practitioner Women's Health
DX: Z36.86 Encounter for antenatal screening for cervical length (principal); Z87.51 Personal history of pre-term labor
CPT/HCPCS: 76815; 76817

== ENCOUNTER → 2023-11-19 | Outpatient (CLI) | payer SELFPAY ==
--- NOTE | 2023-11-19 11:24 | US_ITS ---
STUDY: SECOND AND THIRD TRIMESTER OBSTETRICAL ULTRASOUND REASON FOR EXAM: Female, 28 years old anatomy LMP: Unknown. TECHNIQUE: Transabdominal and Transvaginal TECHNICAL QUALITY: Adequate. PRIOR ULTRASOUND: OB ultrasound dated November 06, 2023 FINDINGS: There is a single intrauterine fetus. The fetus is in an transverse lie with the head on the maternal left side. There is demonstrated cardiac activity with a heart rate of 141 bpm. There is a normal amniotic fluid volume. The largest amniotic fluid pocket measures 3.9 cm. The placenta is anterior in location and is not low lying. There are Grade 0 placental changes. The cervix measures 4.8 cm in length. The adnexal regions are not visualized. BIOMETRY: BPD: 4.5 cm: 19 weeks, 3 days HC: 16.8 cm: 19 weeks, 3 days AC: 14.6 cm: 20 weeks, 0 days FL: 2.9 cm: 18 weeks, 6 days CI: 75.9 HC/AC: 1.2 age by current US: 19 weeks, 3 days. EDY by current US: April 11, 2024. Estimated weight: 296 grams, +/- 44 grams, 74 %. ANATOMY: (Small and genetic defects cannot be excluded on ultrasound) Cranium: Visualized lateral ventricles, choroid plexus, cerebellum, cisterna magna, and face nose and lips. Chest: Normal 4-chamber heart. Abdomen/Pelvis: Visualized diaphragm, stomach, abdominal wall, cord insertion, 3 core vessel, kidneys, and bladder. Spine: Visualized cervical, thoracic, lumbar spine, as well as sacrum. Extremities: Visualized upper and lower extremities. No visualized obvious or significant defect. IMPRESSION: 1. age by current US: 19 weeks, 3 days. EDY by current US: April 11, 2024. Estimated weight: 296 grams, +/- 44 grams, 74 %. Electronically Signed: Corey Gonzalez MD at 14:12 EDT , STUDY: SECOND AND THIRD TRIMESTER OBSTETRICAL ULTRASOUND REASON FOR EXAM: Female, 28 years old anatomy LMP: Unknown. TECHNIQUE: Transabdominal and Transvaginal TECHNICAL QUALITY: Adequate. PRIOR ULTRASOUND: OB ultrasound dated November 06, 2023 FINDINGS: There is a single intrauterine fetus. The fetus is in an transverse lie with the head on the maternal left side. There is demonstrated cardiac activity with a heart rate of 141 bpm. There is a normal amniotic fluid volume. The largest amniotic fluid pocket measures 3.9 cm. The placenta is anterior in location and is not low lying. There are Grade 0 placental changes. The cervix measures 4.8 cm in length. The adnexal regions are not visualized. BIOMETRY: BPD: 4.5 cm: 19 weeks, 3 days HC: 16.8 cm: 19 weeks, 3 days AC: 14.6 cm: 20 weeks, 0 days FL: 2.9 cm: 18 weeks, 6 days CI: 75.9 HC/AC: 1.2 age by current US: 19 weeks, 3 days. EDY by current US: April 11, 2024. Estimated weight: 296 grams, +/- 44 grams, 74 %. ANATOMY: (Small and genetic defects cannot be excluded on ultrasound) Cranium: Visualized lateral ventricles, choroid plexus, cerebellum, cisterna magna, and face nose and lips. Chest: Normal 4-chamber heart. Abdomen/Pelvis: Visualized diaphragm, stomach, abdominal wall, cord insertion, 3 core vessel, kidneys, and bladder. Spine: Visualized cervical, thoracic, lumbar spine, as well as sacrum. Extremities: Visualized upper and lower extremities. No visualized obvious or significant defect. US/OB Anatomy w/ Transvaginal IMPRESSION: 1. age by current US: 19 weeks, 3 days. EDY by current US: April 11, 2024. Estimated weight: 296 grams, +/- 44 grams, 74 %. Electronically Signed: Corey Gonzalez MD at 14:13 EDT ,
== END | disposition home or self-care (01) ==
LOC: US 11:22
PROVIDERS: Referring Provider Obstetrics & Gynecology; Visit Provider Obstetrics & Gynecology
DX: Z36.89 Encounter for other specified antenatal screening (principal)
CPT/HCPCS: 76805; 76817

== ENCOUNTER → 2024-01-16 | Outpatient (CLI) | payer SELFPAY ==
[2024-01-16 10:25] LABS: Absolute Lymphocyte Count 1.54 X10^3/uL (0.83-4.51); Absolute Neutrophil Count 4.9 X10^3/uL (2.0-7.7); Basophil# 0.04 X10^3/uL; Basophil% 0.6 % (0-1); Eosinophil# 0.07 X10^3/uL; Hematocrit 39.5 % (37-47); Lymphocyte # 1.54 X10^3/ul (0.83-4.51); Lymphocyte % 21.3 % (19-41); Mean Corp Hgb Conc 32.9 g/dL (32-36); Mean Corpuscular Volume 88.2 fL (81-99); Mean Platelet Vol. 8.3 fl (6.2-12.0); Monocyte# 0.67 X10^3/uL; Monocyte% 9.3 % (0-10); NRBC Flagged by Analyzer 0 % (0-5); Neutrophil # 4.88 X10^3/uL (2.7-7.7); Neutrophil % 67.4 % (47-70); Platelet Count 257 K/mm3 (150-450); RBC Distribution Width CV 13.2 % (11.6-14.6); RBC Distribution Width SD 42.7 fl (35.1-43.9); Red Blood Count 4.48 M/mm3 (4.2-5.4); White Blood Count 7.2 K/mm3 (4.4-11.0)
[2024-01-16 10:40] LABS: Glucose Challenge Gest 1H 50g 116 mg/dL (70-140)
[2024-01-17 16:07] LABS: HIV - WCH Non-Reactive (Nonreactive); Syphilis Antibodies Non-reactive
== END | disposition home or self-care (01) ==
PROVIDERS: Referring Provider Obstetrics & Gynecology; Visit Provider Obstetrics & Gynecology
DX: Z13.1 Encounter for screening for diabetes mellitus (principal); Z3A.19 19 weeks gestation of pregnancy
CPT/HCPCS: 36415; 82950; 85025; 86703; 86780

== ENCOUNTER 2024-03-19 21:24 | Outpatient (CLI) | payer SELFPAY ==
[2024-03-19 21:37] VITALS: BP 136/84; PULSE 90; RESP 16; TEMP 36.2
[2024-03-19 23:36] VITALS: PULSE 93; O2SAT 98
[2024-03-19 23:38] VITALS: BP 136/78; PULSE 75
--- NOTE | 2024-03-22 08:49 | OB.TRI.PN_ITS ---
Progress Notes Date of Service: 03/19/24 Progress Note: Patient presents for triage evaluation secondary to threatened labor FHT: 140 Moderate variability reactive no decelerations category I tracing [place]: q 2-5 Contractions Assessment and plan: threatened labor n ocervical change Reactive NST, reassuring maternal and status patient discharged to home to follow-up as scheduled. See problem list details for additional plan information. Charges/Coding Procedures Urinary/Genital [id number]: [id number] non-stress test Interp Assessment & Plan (1) Supervision of high-risk : QUALIFIERS: Trimester: second trimester Qualified Code(s): O09.92 - Supervision of high risk , unspecified, second trimester COMMENT: PRR,, EDY 04/14/24,Taylor Tanner, [facility] [place] (2) : QUALIFIERS: Weeks of gestation: 36 weeks Qualified Code(s): Z3A.36 - 36 weeks gestation of COMMENT: declines genetic & carrier, AFP testing, nl anatomy & consistent EDY (3) Threatened labor:
== END 2024-03-20 00:15 | disposition home or self-care (01) ==
LOC: WPOUT 21:24 → WP 21:25
PROVIDERS: Referring Provider Obstetrics & Gynecology; Visit Provider Obstetrics & Gynecology
DX: O47.03 False labor before 37 completed weeks of gestation, third trimester (principal); Z3A.36 36 weeks gestation of pregnancy
CPT/HCPCS: 59025; 59050; 99221; G0378

== ENCOUNTER → 2024-03-21 | Outpatient (CLI) | payer SELFPAY | END | disposition home or self-care (01) | LOC: LABSPEC 14:29 | PROVIDERS: Referring Provider Registered Nurse; Visit Provider Registered Nurse | DX: Z34.93 Encounter for supervision of normal pregnancy, unspecified, third trimester (principal) | CPT/HCPCS: 87081 ==

== ENCOUNTER 2024-04-04 04:37 | Inpatient (IN) | payer SELFPAY ==
[2024-04-04] VITALS (39 sets, daily range): BP systolic 114–154; BP diastolic 55–90; PULSE 77–112; RESP 14–16; TEMP 36.3–36.7; O2SAT 96–100; BMI 34.0
[2024-04-04] MEDS: Lactated Ringers 1,000 ML 50 ML IV (05:00)
[2024-04-04 05:12] LABS: Absolute Lymphocyte Count 1.88 X10^3/uL (0.83-4.51); Absolute Neutrophil Count 5.2 X10^3/uL (2.0-7.7); Basophil# 0.04 X10^3/uL; Basophil% 0.5 % (0-1); Eosinophils% 1.3 % (0-5); Hematocrit 37.9 % (37-47); Hemoglobin 12.9 g/dL (12.0-15.0); Lymphocyte # 1.88 X10^3/ul (0.83-4.51); Lymphocyte % 23.5 % (19-41); Mean Corpuscular Hgb 29.3 pg (27.0-32.0); Mean Corpuscular Volume 86.1 fL (81-99); Mean Platelet Vol. 8.9 fl (6.2-12.0); Monocyte% 8.8 % (0-10); NRBC Flagged by Analyzer 0 % (0-5); Neutrophil # 5.22 X10^3/uL (2.7-7.7); Neutrophil % 65.1 % (47-70); Platelet Count 254 K/mm3 (150-450); RBC Distribution Width CV 13.2 % (11.6-14.6); RBC Distribution Width SD 41.1 fl (35.1-43.9)
[2024-04-04 05:45] LABS: Syphilis Antibodies Non-reactive
[2024-04-04] MEDS: Lactated Ringers 1,000 ML 999 ML IV (07:15)
--- NOTE | 2024-04-04 07:21 | PCM.HP.OB ---
HPI - General General Date of Admission: 04/04/24 Date of Service: 04/04/24 HPI Narrative ASHLEY VALLE, is a 28 F 38.4 weeks who presents to unit in active labor. admission by Dr Joseph Maternal Data Information EDY Calculator Estimated Delivery Date Method Current WG Current Estimate 04/14/24 LMP (Certain) 38w 4d Final EDY: 04/14/24 Final EDY Source: US >20 weeks Gestational age: 38.4 weeks PFSH PFSH Medical History (Updated 04/04/24 @ 07:27 by Lexi Alvarez CNM) Gestational HTN Alcohol use Non-smoker Missed Seasonal allergies Vaginal delivery Encounter for induction of labor premature rupture of membranes (PPROM) with unknown onset of labor Home Medications ?Medication ?Instructions ?Recorded ?Last Taken ?Type mvgfridq-vtd-Nh-FA 1 mg 1 tab PO DAILY 08/27/21 04/03/24 History tablet Allergy/AdvReac Type Severity Reaction Status Date / Time No Known Allergies Allergy Verified 04/04/24 01:28 Family History Father Polydactyly of both feet Polydactyly of both hands Surgical History (Updated 04/04/24 @ 05:48 by Henny Escobar) History of lumpectomy of left breast History of lumpectomy H/O dilation and curettage History of surgery Social History adopted: No household members: spouse and children number of children: 3 current occupational status: unemployed current occupation: HOMEMAKER current occupational exposures/hazards: No pets and animals: No history of recent travel: No (-) sexually active: Yes Smoking Status: Never smoker alcohol intake: current alcohol intake frequency: holidays/special occasions only details: NOT WHILE substance use type: does not use well-balanced diet: daily or most days caffeine: Yes Type: coffee Number of servings: 1 eating out: 1-3 times/week during the past year weight has: remained stable what type of physical activity do you participate in: walking frequency: 3-4 times per week duration: 30-45 minutes/day meri/muslim: Protestant seatbelt use: always do you feel safe at home: Yes additional social history: [employer] 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 Date Name GA/Weeks Outcome Route Bth Weight Gen Labor Lgth Anesthesia Del Locatn Provider FOB Unknown 2022 [facility]17 Kimberly 39 live - full term 6#10oz Male 17 hr epidural [facility] 05/19/19 Taylor 40 live - full term 6#9oz Female 10 hr epidural [facility] 08/27/21 [facility] 34 live - 4#8oz Male 12 HR epidural [facility] [place] Delivery Date: 10/19/17 Last Updated by: Anna King IOL Gestational HTN Delivery Date: 08/27/21 Last Updated by: Valery Valle PPROM pt saw Melani Marlene at [place] a CNM there. Delivered at [facility] due to GA, baby transferred to [facility]. Family owns [employer] Visit Details Expected Delivery Route/Plan Labor Preferences- CB/BF classes: [] labor support person: [] labor intervention preferences: [] pain management options preferred: [] cut cord/dad catch: [] : [] PP control planned: [] discussed possible routes of delivery and associated risks: [] special requests: [] Plans Covid status: [] Flu vaccine: [] Tdap vaccine: declined Rhogam: na LARC form signed: declined movement and labor precautions reviewed. Problem list reviewed and updated with the most current plan of care details and appropriate orders placed. Relevant counseling for the gestational age provided. Continue routine care and follow up unless otherwise noted in visit notes/problem list details OB Flowsheet Initial Weight: Not Recorded Date <del>?</del> EGA Weight BP Urine Prot <del>?</del> Glucose FHR FuHt Pres Dilation <del>?</del> Effaced St Visit Note 08/30/23 <del>?</del> 7w 3d 181 lb 6 oz 124/82 <del>?</del> 158 <del>?</del> kw-CRL cons with dates. declines NIPT. 09/26/23 <del>?</del> 11w 2d 179 lb 2 oz 132/86 Negative <del>?</del> Negative 160 <del>?</del> JV- no lof, vaginal bleeding, or cramping. has moderate nausea still. interested in promethazine. 10/25/23 <del>?</del> 15w 3d 183 lb 118/72 Negative <del>?</del> Negative 165 <del>?</del> MH-No VB,cramping. Nausea persists, phenergan helpful. CL US [facility] next week 11/21/23 <del>?</del> 19w 2d 182 lb 4 oz 125/81 Negative <del>?</del> Negative 157 <del>?</del> JV- no lof, vaginal bleeding, or cramping. no complaints. still has mild nausea from time to time. normal anatomy scan done at [facility]. 74th% 12/19/23 <del>?</del> 23w 2d 184 lb 121/81 Negative <del>?</del> Negative 150 <del>?</del> SM- no vb lof good fm 01/16/24 <del>?</del> 27w 2d 189 lb 127/86 <del>?</del> 138 28 0 <del>?</del> KW- no vb/lof/ctx. good fm. had fall 1 week ago landed on bottom. is having anxiety about Hx of PPROM, as she fell prior to PPROM with another . spec exam done today for reassurance. closed KW- no vb/lof/ctx. good fm. had fall 1 week ago landed on bottom. is having anxiety about Hx of PPROM, as she fell prior to PPROM with another . spec exam done today for reassurance. closed. 28 week labs reviewed 01/28/24 <del>?</del> 29w 0d 187 lb 121/85 Negative <del>?</del> Negative 138 29 <del>?</del> KW- no vb/lof/ctx. good fm. LARC today. Declines Tdap. 02/05/24 <del>?</del> 30w 1d 188 lb 130/84 <del>?</del> 135 30 0.5 <del>?</del> 0 -4 SM- add in for small spotting x 1, has been very active at home no lof admits good fm, occasional ctx. reveiwed precautions. good fm. 02/12/24 <del>?</del> 31w 1d 188 lb 6 oz 114/79 Negative <del>?</del> Negative 132 32 <del>?</del> JV- no lof, vaginal bleeding, or dec fm. 02/28/24 <del>?</del> 33w 3d 189 lb 127/86 Negative <del>?</del> Negative 130 33 <del>?</del> SM- no vb lof good fm no regular ctx SM- no vb lof good fm no regular ctx, requesting BV screen 03/10/24 <del>?</del> 35w 0d 190 lb 138/91 Trace <del>?</del> Negative 130 35 <del>?</del> KW- no vb/lof/ctx. good fm. discussed GBS next week. 03/21/24 <del>?</del> 36w 4d 192 lb 2 oz 123/84 <del>?</del> 140 37 1 <del>?</del> 20 -4 LC- no vb/no consistent ctx/lof. good fm. gbs obtain. PTL precautions provided. 03/27/24 <del>?</del> 37w 3d 240 lb 2 oz 130/85 Negative <del>?</del> Negative 159 37 Cephalic <del>?</del> JV- ultrasound proven vtx. no lof ,vaginal bleeding, or dec fm. 04/02/24 <del>?</del> 38w 2d 194 lb 129/86 Trace <del>?</del> Negative 140 38 Cephalic 4 <del>?</del> 60 -1 Sm- no vb lof good fm no reuglar ctx NST FHR Rate Baby A Baseline: 135 Variability:: Moderate Accelerations:: 15 x 15 Decelerations:: None NST Reactive:: Yes FHR Category:: Category I ROS Constitutional Constitutional: Denies change in weight, fatigue, fever(s), headache(s), poor appetite or weakness Eyes Eyes: Denies blurry vision, change in vision, floaters, seeing flashes or spots in vision ENT HEENT: Denies dizziness, headache(s), loss taste/smell or sore throat Cardiovascular Cardiovascular: Denies chest pain, dizziness, dyspnea, irregular heart rhythm, lightheadedness, palpitations or rapid heart rate Respiratory/Chest Respiratory/Chest: Denies change in mental status, chest tightness, cough, dyspnea or breast pain Gastrointestinal Gastrointestinal: Denies anorexia, chewing difficulty, constipation, diarrhea or weight changes Genitourinary Genitourinary: Denies difficulty urinating, dysuria, flank pain, genital pain, urinary frequency or urinary urgency Musculoskeletal Musculoskeletal: Denies back pain, difficulty walking, extremity pain, joint pain, muscle cramps or muscle weakness Integumentary Integumentary: Denies lesions or unusual bruising Neurologic Neurologic: Denies abnormal movements, abnormal speech, dizziness, numbness, seizure-like activity, syncope or weakness Psychiatric Psychiatric: Denies behavioral changes, change in appetite, confusion, depression, homicidal ideation, suicidal ideation or suicidal thoughts Endocrine Endocrinology: Denies excessive sweating, polydipsia or polyuria Hematologic/Lymphatic Hematologic/Lymphatic: Denies anemia Allergic/Immunologic Allergic/Immunologic: Denies itchy eyes, lip swelling, throat swelling, tongue swelling or wheezing Vital Signs Vital Signs Vital Signs: 04/04/24 01:21 04/04/24 01:21 04/04/24 01:24 Pulse Rate 112 H Blood Pressure 135/88 H BP Systolic 135 BP Diastolic 88 Pulse Ox 98 04/04/24 01:24 04/04/24 01:26 04/04/24 01:26 Pulse Rate 105 H 100 Blood Pressure BP Systolic BP Diastolic Pulse Ox 97 04/04/24 01:31 04/04/24 01:31 04/04/24 01:34 Pulse Rate 110 H Blood Pressure 125/76 H BP Systolic 125 BP Diastolic 76 Pulse Ox 98 04/04/24 01:34 04/04/24 03:30 04/04/24 03:30 Pulse Rate 107 H 89 Blood Pressure 123/80 H BP Systolic 123 BP Diastolic 80 Pulse Ox Weight Weight: 192 lb 3.2 oz Body Mass Index (BMI) 34.0 Physical Exam Const alert, oriented x3 and no apparent distress General Appearance: cooperative Orientation / Consciousness: awake HEENT normocephalic Neck full ROM Lymph Lymphatic: no lymphadenopathy noted Chest inspection of chest normal Resp normal respiratory effort and normal air movement Effort and Inspection: able to speak in complete sentences and symmetric chest movement GI soft to palpation and non-tender Inspection: gravid Palpation: soft; Negative for tender external exam normal Manual OB Exam: dilated 6, effaced 60 and station -2 Back/Spine normal to inspection Extremity normal to inspection and full ROM Skin no rashes or lesions noted Psych mental status grossly normal Appearance: grossly normal Speech: normal speech Labs Labs Labs: Blood Type A POSITIVE Antibody Screen NEGATIVE Hct 37.9 % (37-47) Hgb 12.9 g/dL (12.0-15.0) Obstetrics Ultrasound Syphilis Total Ab Non-reactive Rubella IgG Antibody Reactive (Nonreactive) Hep Bs Antigen Non-Reactive (Nonreactive) Hepatitis C Antibody Non-Reactive (Nonreactive) Chlamydia DNA (BOBBY) Negative (Negative) N.gonorrhoeae DNA (BOBBY) Negative (Negative) HIV 1&2 Antibody Non-Reactive (Nonreactive) Glucose 1 Hr 50 gm 116 mg/dL (70-140) Group B Strep DNA POSITIVE (Negative) H Miscellaneous Test Assessment & Plan (1) Threatened labor: (2) History of labor: COMMENT: CL US ordered at 16 wk:4.8cm had pprom at 34 weeks. plan to screen for BV in 3rd trimester, and cervical lengths. MFM to see for anatomy scan. (3) Obesity affecting , antepartum: COMMENT: BMI 32 A1C-nl (4) Supervision of high-risk : QUALIFIERS: Trimester: second trimester Qualified Code(s): O09.92 - Supervision of high risk , unspecified, second trimester COMMENT: PRR,, EDY 04/14/24,Taylor Tanner, [facility] [place] (5) : QUALIFIERS: Weeks of gestation: 38 weeks Qualified Code(s): Z3A.38 - 38 weeks gestation of COMMENT: GBS neg,declines genetic & carrier, AFP testing, nl anatomy & consistent EDY (6) History of miscarriage, currently : (7) Active labor: Charges/Coding Multi Select Codes Urinary/Genital Urinary/Genital CPT Codes: No Charge
[2024-04-04] MEDS: Oxytocin 15 Units/NS 250ml 15 UNITS/250 ML IV.SOLN 2 UNITS IV (08:14)
[2024-04-04] MEDS: fentaNYL-bupivacaine (epidural) 100 ML BAG EPIDURAL (08:43)
[2024-04-04] MEDS: Amnioinfusion- 0.9% NS 1,000 ML IV.SOLN. 1000 ML INTRA-UTER (10:10)
--- NOTE | 2024-04-04 10:51 | PN_ITS ---
Progress Note comfortable with epidural current tracing: FHT: 135 Moderate variability reactive variable decelerations category II tracing [place]: 2-3 Contractions Membranes:ruptured for clear-internals placed SVE: reviewed tracing abnormalities since last note: collaboration with Dr Landaverde at this time for Cat II FHT tracing. A/P: Continue with position changes Titrate pitocin per protocol Epidural per anesthesia GBS neg Amnioinfusion started Anticipate Dr Joseph aware of above assessment and agrees with plan of care Assessment & Plan Assessment/Plan (1) Active labor: (2) Threatened labor: (3) History of labor: (4) Obesity affecting , antepartum: (5) Supervision of high-risk : QUALIFIERS: Trimester: second trimester Qualified Code(s): O09.92 - Supervision of high risk , unspecified, second trimester (6) : QUALIFIERS: Weeks of gestation: 38 weeks Qualified Code(s): Z3A.38 - 38 weeks gestation of (7) History of miscarriage, currently : Multi Select Codes Urinary/Genital Urinary/Genital CPT Codes: No Charge
[2024-04-04] MEDS: Oxytocin 15 Units/NS 250ml 15 UNITS/250 ML IV.SOLN 334 UNITS IV (11:55)
--- NOTE | 2024-04-04 12:03 | EX.PCM.OBRPT ---
Assessment & Plan (1) Vaginal delivery: COMMENT: LIZETT Fareed Richardson (2) Active labor: (3) History of labor: COMMENT: CL US ordered at 16 wk:4.8cm had pprom at 34 weeks. plan to screen for BV in 3rd trimester, and cervical lengths. MFM to see for anatomy scan. (4) Threatened labor: (5) Obesity affecting , antepartum: COMMENT: BMI 32 A1C-nl (6) Supervision of high-risk : QUALIFIERS: Trimester: second trimester Qualified Code(s): O09.92 - Supervision of high risk , unspecified, second trimester COMMENT: PRR,, EDY 04/14/24,PC Taylor Harris, [facility] Maximiliano (7) : QUALIFIERS: Weeks of gestation: 38 weeks Qualified Code(s): Z3A.38 - 38 weeks gestation of COMMENT: GBS neg,declines genetic & carrier, AFP testing, nl anatomy & consistent EDY Maternal Data Information EDY Calculator Estimated Delivery Date Method Current WG Current Estimate 04/14/24 LMP (Certain) 38w 4d Final EDY: 04/14/24 Final EDY Source: US >20 weeks Gestational age: 38.4 weeks Vaginal Delivery Maternal Presentation Maternal Presentation: Active Labor Maternal Presentation: Progressed well to 10cm dilated and made steady progress with effective maternal pushing. Delivered the head in YANELIS presentation. The head was delivered atraumatically and no nuchal cord was identified. The anterior and posterior shoulders delivered without complication followed by the rest of the and the infant was placed on the maternal abdomen. Delayed cord clamping was employed for approximately 3 minutes. Cord was clamped and cut and gentle traction was applied to the cord and the placenta delivered spontaneously. Immediately following, it was noted to be intact with a 3 vessel cord. IV Pitocin started and vaginal bleeding stable. The perineum and vagina were inspected and noted to have a small labia laceration which was repaired with 3-0 Vicryl with one interrupting stitch. EBL was 100cc. Apgars 9/9. Patient and infant tolerated delivery well. Bonding skin to skin during recovery. Dr Knapp notified of vaginal delivery and orders reviewed. Physician agrees with current plan of care. Operative Information Date of Procedure: 04/04/24 Pre-Operative Diagnosis: See AP comments Post-Operative Diagnosis: Same Surgery / Procedure Performed: Spontaneous Vaginal Delivery director advertising #1: Lexi Alvarez Type of Anesthesia: Epidural Estimated Blood Loss: 100 Time of Delivery: 11:46 Findings Presentation: Vertex Amniotic Membrane Rupture Type: Artificial Amniotic Fluid Description: Clear Placental Delivery Description: Spontaneous Placenta Disposition: [facility] Cord Vessel Description: 3 Vessels Cord Entanglement: None Cord Gases: ABG and VBG Infant A Gender: Male (1 minute): 9 (5 minute): 9 Delayed Cord Clamping: Yes Post Vaginal Delivery Medications Given After Delivery: IV Pitocin Episiotomy Description: None Laceration: 1st degree (small labial laceration) Complication Complications: None Multi Select Codes Urinary/Genital Urinary/Genital CPT Codes: 38351 Vaginal Delivery [facility]
[2024-04-04] MEDS: Oxytocin 15 Units/NS 250ml 15 UNITS/250 ML IV.SOLN 83 UNITS IV (12:45)
[2024-04-04] MEDS: Benzocaine/Lanolin/Aloe Vera 85 GM Spray 1 SPRAY TOPICAL (14:04)
[2024-04-04] MEDS: Acetaminophen 500 MG Tablet 1000 MG PO (21:01)
[2024-04-04] MEDS: Ibuprofen 600 MG Tablet PO (21:47)
[2024-04-05 00:38] VITALS: BP 119/71; PULSE 84; TEMP 36.4; O2SAT 96
[2024-04-05] MEDS: Ibuprofen 600 MG Tablet PO ×2 (03:43→09:53)
[2024-04-05] MEDS: Acetaminophen 500 MG Tablet 1000 MG PO ×2 (03:43→09:53)
[2024-04-05 03:47] VITALS: BP 119/77; PULSE 82; RESP 16; TEMP 36.3; O2SAT 97
--- NOTE | 2024-04-05 05:43 | DCINST_ITS ---
Discharge Instructions Diet Discharge Diet: No restrictions Activity Discharge Activity: Return to Normal Activity May resume sexual activity in: 6-8 weeks Dressing / Incision Call your doctor if you observe: Fever of 101 or Higher, Coldness, Increased Pain, Numbness or Tingling, Change in Color, Inability to urinate, Inability to have a bowel movement, Using more than 1 pad per hour, Shortness of breath, Dizziness, Fainting spells, Swelling in the ankles, Chest pain, Increased palpitations (irregular heartbeat), Calf discomfort and Uncontrolled pain Follow Up Care Please Follow Up With: Lexi Alvarez CNM When: Please call the office to schedule your follow up appointment in 6 weeks. If you had high blood pressure please call to schedule an appointment in 2 weeks. Test Results: Test results from this visit will be discussed in further detail at your follow- up appointment, if applicable. Discharge Plan Admission Admit Date/Time: 04/04/24 04:37 Attending Provider: Lexi Alvarez Primary Care Provider: Care Physician,No Primary Consulting Providers: Paty Landaverde Discharge Orders/Prescriptions Prescriptions: No Action 1 mg Tablet 1 tab PO DAILY Referrals / Follow Up: Care Physician,No Primary [Primary Care Provider] - Disposition Disposition (needs filled in before D/C Order can be placed): Home, Self Care
--- NOTE | 2024-04-05 05:44 | PCM.PN.OB ---
Subjective Subjective Patient doing well without complaints. Tolerating PO. Ambulating and voiding without difficulty. Feeding well. Denies chest pain, shortness of breath, calf pain/swelling, fevers, chills, lightheadedness. Objective Data Objective Data Vital Signs: Vital Signs Temp Pulse Resp BP Pulse Ox O2 Del Method 97.3 F L 82 16 119/77 97 Room Air 04/05/24 03:47 04/05/24 03:47 04/05/24 03:47 04/05/24 03:47 04/05/24 03:47 04/05/24 03:47 Oxygen Delivery Method Room Air Weight: 192 lb 3.2 oz Body Mass Index (BMI) 34.0 Intake & Output: Intake and Output for Last 24 Hours 04/03/24 04/04/24 04/05/24 23:59 23:59 23:59 Intake Total 2387.00 / 2387.00 Output Total 1800 / 1800 Balance 587.00 / 587.00 Lab / Micro Data Attestation: I reviewed the patient's lab results. 04/04/24 04:50 Labs: Laboratory Results - last 24 hr 04/04/24 04:50: Syphilis Total Ab Non-reactive, Blood Type A POSITIVE, Antibody Screen NEGATIVE ROS Constitutional Constitutional: Reports systems reviewed and no addt'l complaints, except as documented; Denies anorexia or headache(s) Cardiovascular Cardiovascular: Reports systems reviewed and no addt'l complaints, except as documented; Denies dizziness, dyspnea, nausea or tachypnea Respiratory/Chest Respiratory/Chest: Reports systems reviewed and no addt'l complaints, except as documented; Denies cough, dyspnea, shortness of breath at rest or tachypnea Gastrointestinal Gastrointestinal: Reports systems reviewed and no addt'l complaints, except as documented; Denies abdominal pain, constipation or nausea Genitourinary Genitourinary: Reports systems reviewed and no addt'l complaints, except as documented; Denies burning urination, difficulty urinating, dysuria, urinary frequency or urinary incontinence Musculoskeletal Musculoskeletal: Reports systems reviewed and no addt'l complaints, except as documented Integumentary Integumentary: Reports systems reviewed and no addt'l complaints, except as documented Neurologic Neurologic: Reports systems reviewed and no addt'l complaints, except as documented; Denies abnormal speech, dizziness or headache(s) Psychiatric Psychiatric: Reports systems reviewed and no addt'l complaints, except as documented Endocrine Endocrinology: Reports systems reviewed and no addt'l complaints, except as documented Hematologic/Lymphatic Hematologic/Lymphatic: Reports systems reviewed and no addt'l complaints, except as documented Physical Exam Const alert, oriented x3 and no apparent distress Neck full ROM Resp normal respiratory effort, normal air movement and no retractions Effort and Inspection: able to speak in complete sentences and symmetric chest movement GI soft to palpation Bladder / Kidney Exam: bladder normal to palpation Uterus Palpation: uterus fundus firm Extremity normal to inspection and full ROM Psych mental status grossly normal, thought process normal and cooperative Assessment & Plan (1) Vaginal delivery: COMMENT: LIZETT Richardson PLAN: s/p PPD # 1 1. routine post delivery care 2. breast feeding- support given 3. rh positive 4. rubella immune 5. Discharge home (2) Obesity affecting , antepartum: COMMENT: BMI 32 A1C-nl Charges/Coding Multi Select Codes Urinary/Genital Urinary/Genital CPT Codes: No Charge
[2024-04-05 08:49] VITALS: BP 118/76; PULSE 79; RESP 16; TEMP 36.3; O2SAT 97
[2024-04-05 12:00] VITALS: BP 120/76; PULSE 82; RESP 16; TEMP 36; O2SAT 97
== END 2024-04-05 13:20 | disposition home or self-care (01) | DRG 807 ==
LOC: WPOUT 04:46 → WP 04:46
PROVIDERS: Obstetrics & Gynecology; Admitting Provider Advanced Practice Midwife; Referring Provider Advanced Practice Midwife; Visit Provider Advanced Practice Midwife
DX: O42.92 Full-term premature rupture of membranes, unspecified as to length of time between rupture and onset of labor (principal); Z37.0 Single live birth; O70.0 First degree perineal laceration during delivery; O99.214 Obesity complicating childbirth; O76 Abnormality in fetal heart rate and rhythm complicating labor and delivery; Z3A.38 38 weeks gestation of pregnancy
CPT/HCPCS: 59025; 59050; 85025; 86780; 86850; 86900; 86901; 99221; J7030; J7120; G0378

== ENCOUNTER → 2024-09-15 | Outpatient (CLI) | payer SELFPAY ==
[2024-09-19 08:43] LABS: HPV Reflexed? NOT INDICATED
== END | disposition home or self-care (01) ==
LOC: LABSPEC 16:14
PROVIDERS: Referring Provider Nurse Practitioner Women's Health; Visit Provider Nurse Practitioner Women's Health
DX: Z12.4 Encounter for screening for malignant neoplasm of cervix (principal)
CPT/HCPCS: 88175; G0145

== ENCOUNTER → 2024-09-19 | Outpatient (CLI) | payer SELFPAY ==
--- NOTE | 2024-09-19 15:31 | US_ITS ---
PROCEDURE: PELVIC W/ TRANSVAGINAL REASON FOR EXAM: Menorrhagia TECHNIQUE: Grayscale and color doppler transabdominal and transvaginal pelvic ultrasound was performed. COMPARISON: 11/19/2023; images only are available for review, the report is not available at the time of dictation. FINDINGS: Uterus: 8.8 x 5.3 x 4.4 cm, Anteverted. Normal contour and myometrial echotexture. Endometrium: 9 mm, trilaminar proliferative phase appearance. Cervix: Nabothian cysts. Trace endocervical fluid. Right ovary: 2.9 x 1.6 x 1.8 cm (estimated volume 5 mL), unremarkable. Left ovary: 3.5 x 2.3 x 2.3 cm (estimated volume 10 mL), unremarkable. 1.6 x 1.3 x 1.4 cm simple appearing unilocular likely dominant follicle/physiologic cyst. Free fluid: Trace. Other: Bladder distended on transabdominal imaging to 12.1 x 10.0 x 8.8 cm for estimated volume 556 mL. US/Pelvic w/ Transvaginal IMPRESSION: 1. No acute abnormality. 2. Trace nonspecific endocervical fluid could reflect blood products given the provided history. 3. Trace pelvic free fluid, potentially physiologic in this demographic. 4. Additional description as above. Reading Location: [id number]
== END | disposition home or self-care (01) ==
PROVIDERS: Referring Provider Nurse Practitioner Women's Health; Visit Provider Nurse Practitioner Women's Health
DX: N92.1 Excessive and frequent menstruation with irregular cycle (principal)
CPT/HCPCS: 76830; 76856